=== PATIENT | female | born 1990 | race Caucasian/White ===

== ENCOUNTER 2017-03-26 18:41 | Emergency (ER) | payer BC ==
[2017-03-26] MEDS ORDERED: NS 0.9% 1000 ML* 1,000 ML IV ONE (23:12)
[2017-03-26] MEDS ORDERED: Ketorolac INJ* 30 MG/ML 1 ML VIAL IV ONE (23:12)
[2017-03-26 23:55] LABS: Hematocrit 39 % (35-47); Hemoglobin 13.2 g/dl (12.0-16.0); Mean Corpuscular HGB Conc 34 g/dl (31-36); Mean Corpuscular Hemoglobin 32 pg (27-31); Mean Corpuscular Volume 94 fL (80-97); Mean Platelet Volume 8 um3 (7.4-10.4); Red Blood Count 4.12 10^6/ul (4.0-5.4); Red Cell Distribution Width 13 % (10.5-15)
[2017-03-27 00:08] LABS: ALT 9 U/L (7-52); Albumin 4.3 g/dL (3.2-5.2); Alkaline Phosphatase 55 U/L (34-104); BUN/Creatinine Ratio 9.7 (8-20); Blood Urea Nitrogen 7 mg/dL (6-24); C Reactive Protein < 1.00 mg/L (< 5.00); CO2 Carbon Dioxide 28 mmol/L (22-32); Chloride 104 mmol/L (101-111); Creatine Kinase 53 U/L (10-223); EGFR Non-African American 99.5 (>60); Globulin 2.9 g/dL (2-4); Glucose 109 mg/dL (70-100); Lipase 28 U/L (11.0-82.0); Magnesium 2.1 mg/dL (1.9-2.7); Sodium 136 mmol/L (133-145); Total Protein 7.2 g/dL (6.4-8.9)
[2017-03-27] MEDS ORDERED: Iohexol 350* (CONTRAST) 500 ML MDV IV ONE (00:12)
[2017-03-27 00:19] LABS: Anion Gap 4 mmol/L (2-11)
[2017-03-27 01:20] LABS: Urine Bacteria Absent (Absent); Urine Bilirubin Negative (Negative); Urine Glucose Negative (Negative); Urine Nitrite Negative (Negative)
[2017-03-27] MEDS ORDERED: traMADol TAB* 50 MG PO ONE (03:11)
[2017-03-27 03:42] VITALS: BP 110/79
--- NOTE | 2017-03-27 07:27 | ED ---
Marcos Bowman Benjamin, scribed for Jorgito Allred MD on 03/26/17 at 2309 . HPI Chest Pain - HPI Summary HPI Summary: 26yo female c/o CP since last night around 1800. Pt points the CP in her left anterior chest that radiates to her left arm and neck. Pain doesnt get worse with movement. Pt reports having a similar episode before for 2 hours, but not overnight. Denies nausea. Reports mild SOB. Pt reports numbness in her left arm. - History of Current Complaint Chief Complaint: EDChestPainROMI Hx Obtained From: Patient Onset/Duration: Started Days Ago - 1 day ago, Still Present Timing: Constant Initial Severity: Moderate Current Severity: Moderate Pain Intensity: 7 Pain Scale Used: 0-10 Numeric Chest Pain Location: Left Anterior Chest Pain Radiates: Yes Chest Pain Radiates To:: Arm - left, Neck Aggravating Factor(s): Nothing Alleviating Factor(s): OTC Meds - ibuprofen Associated Signs and Symptoms: Positive: Chest Pain, Shortness of Breath. Negative: Nausea - Allergy/Home Medications Allergies/Adverse Reactions: Allergies Allergy/AdvReac Type Severity Reaction Status Date / Time No Known Allergies Allergy Verified 03/26/17 18:59 PMH/Surg Hx/FS Hx/Imm Hx Endocrine/Hematology History: Denies: Hx Diabetes Cardiovascular History: Reports: Other Cardiovascular Problems/Disorders - Hx costochondritis Denies: Hx Coronary Artery Disease, Hx Hypertension Infectious Disease History: No Infectious Disease History: Denies: Traveled Outside the [place] in Last 30 Days - Family History Known Family History: Negative: Hypertension, Respiratory Disease - Social History Occupation: Student Lives: Dormitory/Roommates Alcohol Use: Occasionally Substance Use Type: Reports: None Smoking Status (MU): Current Some Day Smoker Review of Systems Constitutional: Negative Eyes: Negative ENT: Negative Positive: Chest Pain Positive: Shortness Of Breath. Negative: Cough Gastrointestinal: Negative Genitourinary: Negative Musculoskeletal: Negative Skin: Negative Neurological: Negative Psychological: Normal All Other Systems Reviewed And Are Negative: Yes Physical Exam Triage Information Reviewed: Yes Vital Signs On Initial Exam: Initial Vitals Temp Pulse Resp BP Pulse Ox 97.5 F 95 17 124/80 99 03/26/17 18:54 03/26/17 18:54 03/26/17 18:54 03/26/17 18:54 03/26/17 18:54 Vital Signs Reviewed: Yes Appearance: Positive: Well-Appearing, No Pain Distress, Well-Nourished Skin: Positive: Warm, Skin Color Reflects Adequate Perfusion, Dry Head/Face: Positive: Normal Head/Face Inspection Eyes: Positive: EOMI, ANTHONY ENT: Positive: Normal ENT inspection, Hearing grossly normal Neck: Positive: Supple, Nontender Respiratory/Lung Sounds: Positive: Clear to Auscultation, Breath Sounds Present Cardiovascular: Positive: RRR, Pulses are Symmetrical in both Upper and Lower Extremities Abdomen Description: Positive: Nontender, Soft Bowel Sounds: Positive: Present Musculoskeletal: Positive: Strength/ROM Intact, Pain @ - mild tenderness to palpation in left anterior chest wall. Neurological: Positive: Sensory/Motor Intact, Alert, Oriented to Person Place, Time - Marcela Coma Scale Coma Scale Total: 15 Diagnostics - Vital Signs Vital Signs Temp Pulse Resp BP Pulse Ox 03/26/17 22:41 99.7 F 81 20 116/70 99 03/26/17 20:03 98.8 F 74 16 127/79 100 03/26/17 18:54 97.5 F 95 17 124/80 99 - Laboratory Lab Results: Lab Results 03/26/17 03/26/17 03/26/17 Range/Units 23:40 23:40 23:40 WBC 8.0 (3.5-10.8) 10^3/ul RBC 4.12 (4.0-5.4) 10^6/ul Hgb 13.2 (12.0-16.0) g/dl Hct 39 (35-47) % MCV 94 (80-97) fL MCH 32 H (27-31) pg MCHC 34 (31-36) g/dl RDW 13 (10.5-15) % Plt Count 276 (150-450) 10^3/ul MPV 8 (7.4-10.4) um3 Neut % (Auto) 49.0 (38-83) % Lymph % (Auto) 40.8 (25-47) % Reagan % (Auto) 7.5 (1-9) % Eos % (Auto) 1.7 (0-6) % Baso % (Auto) 1.0 (0-2) % Absolute Neuts (auto) 3.9 (1.5-7.7) 10^3/ul Absolute Lymphs (auto) 3.3 (1.0-4.8) 10^3/ul Absolute Monos (auto) 0.6 (0-0.8) 10^3/ul Absolute Eos (auto) 0.1 (0-0.6) 10^3/ul Absolute Basos (auto) 0.1 (0-0.2) 10^3/ul Absolute Nucleated RBC 0 10^3/ul Nucleated RBC % 0 INR (Anticoag Therapy) 0.89 (0.89-1.11) APTT 31.3 (26.0-36.3) seconds Sodium 136 (133-145) mmol/L Potassium TNP Chloride 104 (101-111) mmol/L Carbon Dioxide 28 (22-32) mmol/L Anion Gap 4 (2-11) mmol/L BUN 7 (6-24) mg/dL Creatinine 0.72 (0.51-0.95) mg/dL Est GFR ( Amer) 128.0 (>60) Est GFR (Non-Af Amer) 99.5 (>60) BUN/Creatinine Ratio 9.7 (8-20) Glucose 109 H (70-100) mg/dL Lactic Acid (0.5-2.0) mmol/L Calcium 9.0 (8.6-10.3) mg/dL Magnesium 2.1 (1.9-2.7) mg/dL Total Bilirubin 0.50 (0.2-1.0) mg/dL AST TNP ALT 9 (7-52) U/L Alkaline Phosphatase 55 (34-104) U/L Total Creatine Kinase 53 (10-223) U/L CK-MB (CK-2) 0.8 (0.6-6.3) ng/mL Troponin I 0.00 (<0.04) ng/mL C-Reactive Protein < 1.00 (< 5.00) mg/L Total Protein 7.2 (6.4-8.9) g/dL Albumin 4.3 (3.2-5.2) g/dL Globulin 2.9 (2-4) g/dL Albumin/Globulin Ratio 1.5 (1-3) Lipase 28 (11.0-82.0) U/L TSH 4.90 (0.34-5.60) mcIU/mL Beta HCG, Quant < 0.60 mIU/mL Urine Color Urine Appearance Urine pH (5-9) Ur Specific Egnar (1.010-1.030) Urine Protein (Negative) Urine Ketones (Negative) Urine Blood (Negative) Urine Nitrate (Negative) Urine Bilirubin (Negative) Urine Urobilinogen (Negative) Ur Leukocyte Esterase (Negative) Urine WBC (Auto) (Absent) Urine RBC (Auto) (Absent) Ur Squamous Epith Cells (Absent) Ur Transition Epith Cell (Absent) Urine Bacteria (Absent) Urine Glucose (Negative) 03/26/17 03/27/17 03/27/17 Range/Units 23:40 01:00 01:40 WBC (3.5-10.8) 10^3/ul RBC (4.0-5.4) 10^6/ul Hgb (12.0-16.0) g/dl Hct (35-47) % MCV (80-97) fL MCH (27-31) pg MCHC (31-36) g/dl RDW (10.5-15) % Plt Count (150-450) 10^3/ul MPV (7.4-10.4) um3 Neut % (Auto) (38-83) % Lymph % (Auto) (25-47) % Reagan % (Auto) (1-9) % Eos % (Auto) (0-6) % Baso % (Auto) (0-2) % Absolute Neuts (auto) (1.5-7.7) 10^3/ul Absolute Lymphs (auto) (1.0-4.8) 10^3/ul Absolute Monos (auto) (0-0.8) 10^3/ul Absolute Eos (auto) (0-0.6) 10^3/ul Absolute Basos (auto) (0-0.2) 10^3/ul Absolute Nucleated RBC 10^3/ul Nucleated RBC % INR (Anticoag Therapy) (0.89-1.11) APTT (26.0-36.3) seconds Sodium (133-145) mmol/L Potassium 3.4 L Chloride (101-111) mmol/L Carbon Dioxide (22-32) mmol/L Anion Gap (2-11) mmol/L BUN (6-24) mg/dL Creatinine (0.51-0.95) mg/dL Est GFR ( Amer) (>60) Est GFR (Non-Af Amer) (>60) BUN/Creatinine Ratio (8-20) Glucose (70-100) mg/dL Lactic Acid 0.7 (0.5-2.0) mmol/L Calcium (8.6-10.3) mg/dL Magnesium (1.9-2.7) mg/dL Total Bilirubin (0.2-1.0) mg/dL AST 14 ALT (7-52) U/L Alkaline Phosphatase (34-104) U/L Total Creatine Kinase (10-223) U/L CK-MB (CK-2) (0.6-6.3) ng/mL Troponin I (<0.04) ng/mL C-Reactive Protein (< 5.00) mg/L Total Protein (6.4-8.9) g/dL Albumin (3.2-5.2) g/dL Globulin (2-4) g/dL Albumin/Globulin Ratio (1-3) Lipase (11.0-82.0) U/L TSH (0.34-5.60) mcIU/mL Beta HCG, Quant mIU/mL Urine Color Yellow Urine Appearance Cloudy Urine pH 6.0 (5-9) Ur Specific Egnar 1.016 (1.010-1.030) Urine Protein Negative (Negative) Urine Ketones Negative (Negative) Urine Blood 1+ H (Negative) Urine Nitrate Negative (Negative) Urine Bilirubin Negative (Negative) Urine Urobilinogen Negative (Negative) Ur Leukocyte Esterase 3+ H (Negative) Urine WBC (Auto) 3+(>20/hpf) H (Absent) Urine RBC (Auto) 2+(6-10/hpf) H (Absent) Ur Squamous Epith Cells Present H (Absent) Ur Transition Epith Cell Present H (Absent) Urine Bacteria Absent (Absent) Urine Glucose Negative (Negative) Result Diagrams: 03/26/17 23:40 03/27/17 01:40 Lab Statement: Any lab studies that have been ordered have been reviewed, and results considered in the medical decision making process. - CT CT Neck CT Interpretation Completed By: Radiologist - Slight reversal of the cervical lordosis which could be due to muscle spasm. The cervical vertebrae are otherwise normally aligned without fracture or destructive bone lesion. No major degenerative changes. Soft tissues normal. In a patient with pain and numbness, if there is a suspicion of myelopathy or radiculopathy, MRI is more sensitive for evaluation of the cord, canal and nerve roots. ED physician reviewed radiology report and agrees. CTA Chest CT Interpretation: No Acute Changes, Positive (See Comments) - Negative for pulmonary embolus. Negative for thoracic aortic aneurysm or dissection. Lungs are clear of acute disease. There is a 6 mm by 8 mm nodule in the left lower lobe which should be followed up according to established criteria. ED physician reviewed radiology report and agrees. CT Interpretation Completed By: Radiologist - Ultrasound No standard instances Ultrasound Interpretation: No Acute Changes - Venous Doppler: Negative for left upper extremity deep venous thrombosis. ED physician reviewed radiology report and agrees. Ultrasound Interpretation Completed By: Radiologist - EKG 1904 Cardiac Rate: NL - 90 bpm EKG Rhythm: Sinus Rhythm ST Segment: Normal Ectopy: None Re-Evaluation - Re-Evaluation First Eval Re-Evaluation Time: 02:58 Comment: Discussed results and D/C plan Chest Pain Course/Dx - Course Course Of Treatment: Reviewed pts medication and allergy lists. Blood pressure noted. PAIN DECREASED AFTER TORADOL. DISCUSSED RESULTS WITH PATIENT. PATIENT WILL F/U WITH [facility]; RETURN IF WORSE. PATIENT WAS TOLD ABOUT THE PULMONARY NODULE AND INFORMED TO F/U WITH HER PMD FOR REEVAL. NO CRITICAL CARE TIME. - Diagnoses Provider Diagnoses: Pulmonary nodule, Chest pain, Arm pain, Paresthesia of left arm Discharge - Discharge Plan Condition: Stable Disposition: HOME Prescriptions: traMADol TAB* [Ultram*] 50 mg PO Q6HR PRN #20 tab MDD 4 PRN Reason: Pain Patient Education Materials: Chest Pain (ED), Arm Pain (ED), Paresthesia (ED) [facility] - Additional Instructions: FOLLOW UP WITH [facility] TODAY, . RETURN TO THE EMERGENCY DEPARTMENT FOR ANY WORSENING OF YOUR CONDITION; PAIN, SHORTNESS OF BREATH, WEAKNESS, YOU FEEL ILL OR QUESTIONS OR CONCERNS. The documentation as recorded by the Marcos hidalgo Benjamin accurately reflects the service I personally performed and the decisions made by me, Jorgito Allred MD.
--- NOTE | 2017-03-27 08:10 | RAD ---
Indication: Left upper extremity numbness with dyspnea chest pain. Duplex Doppler sonography of the deep venous system of the left upper extremity was performed. I laterally the internal jugular veins demonstrate normal phasic flow. Bilaterally the subclavian veins demonstrates normal phasic flow with augmentation in both subclavian veins. The left axillary vein, brachial vein, basilic vein, cephalic vein, radial vein and ulnar vein appear patent and compressible. IMPRESSION: No evidence of deep venous thrombosis of the left upper extremity present.
--- NOTE | 2017-03-27 08:17 | RAD ---
Indication: Left upper extremity pain and numbness. CT of the cervical spine was obtained in the axial plane. Sagittal and coronal reconstructed images were obtained. The skull base demonstrates no evidence of fracture. Mastoid air cells are well aerated. The C1 ring is intact. The vertebral bodies appear normal in height. No evidence of compression fracture is noted. No evidence of disc protrusion is identified. The lung apices are unremarkable. Pedicles appear intact. The spinous processes and transverse processes are unremarkable. Soft tissues of the neck are unremarkable. IMPRESSION: No fracture of the cervical spine is noted.
--- NOTE | 2017-03-27 08:23 | RAD ---
INDICATION: Left-sided chest pain, splinting left arm radiation. COMPARISON: There are no prior studies available for comparison. TECHNIQUE: A CT angiogram of the chest was performed with intravenous following intravenous injection of 57 ml of Omnipaque 350 nonionic contrast. Contiguous axial sections were obtained from the lung apices through the lung bases. Images were reconstructed in the coronal and sagittal planes. FINDINGS: There is relatively homogeneous opacification of the pulmonary arteries. No intraluminal filling defect or pulmonary embolism is seen. The heart is within normal limits in size. No pericardial effusion is present. The thoracic aorta is normal in caliber. No significant enlarged mediastinal or hilar lymph nodes are seen. There is a 6 x 8 mm nodule present in the left lower lobe. The lungs are otherwise clear. No pleural effusion is seen. There is a moderate dorsal scoliosis convex toward the left in the upper dorsal region and toward the right in the lower dorsal region. No significant focal osseous abnormality is seen. The results of this exam were discussed with the referring clinician. IMPRESSION: 1. NO EVIDENCE FOR PULMONARY EMBOLISM. 2. 8 MM LEFT LOWER LOBE PULMONARY NODULE. RECOMMEND A FOLLOW-UP LOW-DOSE NONCONTRAST CT OF THE CHEST IN 6 MONTHS TIME.
== END 2017-03-27 03:44 | disposition home or self-care (01) ==
LOC: ED 18:41
DX: R91.1 Solitary pulmonary nodule (principal); R07.9 Chest pain, unspecified; R06.02 Shortness of breath; M79.602 Pain in left arm; Z72.0 Tobacco use
CPT/HCPCS: 36415; 71275; 72125; 80053; 81003; 81015; 82550; 82553; 83605; 83690; 83735; 84443; 84484; 84702; 85025; 85610; 85730; 86140; 87086; 93005; 99283; A9270-GY; J1885; Q9967